=== PATIENT | male | born 1965 | race Caucasian/White ===

== ENCOUNTER → 2018-07-06 | Day surgery (SDC) | payer BC ==
[~2018-07-06] VITALS: Ht 175.3 cm; Wt 98.9 kg
[2018-07-06] VITALS (8 sets, daily range): BP systolic 150–176; BP diastolic 68–91
[~2018-07-06] MED LIST: ALPRAZOLAM 0.5 MG TAB ONE; AMBIEN10 MG PO; CYCLOBENZAPRINE10 MG PO; DIPHENHYDRAMINE HCL 25 MG CAP ONE; FENTANYL CITRATE/PF 100MCG/2 ML INJ ONE; GABAPENTIN100 MG PO; HEPARIN SOD/SOD CHLORIDE 2,000 ML ONE; IOPAMIDOL 370 MG/ML 200 ML INFUS..BTL INJ ONE; LEVOTHYROXINE75 MCG PO; LIDOCAINE HCL 1% LOCAL INJ 20 ML VIAL ONE; MIDAZOLAM HCL 2 MG/2 ML VIAL ONE; NITROGLYCERIN/D5W 200 MCG/ML 250 ML ONE; NORCO 7.5-3251 EACH PO; SODIUM CHLORIDE 0.9% 1000ML 1,000 ML ONE; TRAZODONE HCL50 MG PO; VERAPAMIL HCL 2.5 MG/ML 2 ML VIAL ONE
--- OUTSIDE RECORDS SUMMARY | 2018-07-06 13:01 | XMS REPORT | Clinical Summary ---
Author Author [facility] Address Unknown Phone Unavailable Care Team Providers Care Scale Balancer Name Role Phone Casey Lewis MD PCP Allergies No Known Allergies Current Medications Prescription Sig. Disp. Refills Start End Date Status Date levothyroxine (SYNTHROID, TK 1 T PO D 0 04/12/20 Active LEVOXYL) 75 mcg tablet 18 HYDROcodone-acetaminophen TK 1 T PO Q 8 H PRN 0 05/20/20 Active (NORCO) 7.5-325 mg per 18 tablet traZODone (DESYREL) 50 MG TK 1 T PO HS 2 06/05/20 Active tablet 18 zolpidem (AMBIEN) 10 mg TK 1 T PO QD HS PRN 0 06/02/20 Active tablet 18 cyclobenzaprine TK 1 T PO QHS 1 04/18/20 Active (FLEXERIL) 5 mg tablet 18 Active Problems Problem Noted Date Obstructive sleep apnea 06/12/2018 Encounters Date Type Specialty Care Team Description 06/12/2018 Office Visit Otolaryngology Jean Powell MD Obstructive sleep apnea (Primary Dx) after 07/05/2017 Family History Medical History Relation Name Comments Cancer Mother Relation Name Status Comments Mother Social History Tobacco Use Types Packs/Day Years Used Date Never Smoker Smokeless Tobacco: Never Used Alcohol Use Drinks/Week oz/Week Comments No Sex Assigned at Date Recorded Not on file Last Filed Vital Signs Vital Sign Reading Time Taken Blood Pressure - - Pulse - - Temperature - - Respiratory Rate - - Oxygen Saturation - - Inhaled Oxygen - - Concentration Weight 99.8 kg (220 lb) 06/12/2018 8:35 AM CDT Height 175.3 cm (5' 9") 06/12/2018 8:35 AM CDT Body Mass Index 32.49 06/12/2018 8:35 AM CDT Plan of Treatment Health Maintenance Due Date Last Done Comments COLON CANCER SCREENING 2016 SHINGRIX VACCINE (#1) 2016 INFLUENZA VACCINE 04/04/2018 Results Not on fileafter 07/05/2017 Insurance Payer Benefit Subscriber ID Type Phone Address Plan / Group BCBS BCBS xxxxxxxxxxxx PPO CHOICE PPO/TRIP GRIDER PPO
--- OUTSIDE RECORDS SUMMARY | 2018-07-06 13:01 | XMS REPORT | Continuity of Care Document ---
Author Author 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 HX of DX with rheumatoid arthrits and possible fibromyalgia [facility] Difficulty sleeping Problem 07/05/2015 [facility] Heartburn Problem 07/05/2015 [facility] History of colonic polyp Problem 07/05/2015 [facility] Hypertension Problem 07/05/2015 [facility] Medications Medication Details Route Status Patient Instructions Ordering Provider Order Date Source Misc Medication 220 mL, Soln-IV, IV, Once, first dose 07/03/15 8:07:00 CDT, stop date 07/03/15 8:07:00 CDT Inactive [facility] 07/03/2015 [facility] propofol 40 mg=4 mL, Emulsion, IV, Once, first dose 07/03/15 7:59:00 CDT, stop date 07/03/15 7:59:00 CDT Inactive [facility] 07/03/2015 [facility] propofol 40 mg=4 mL, Emulsion, IV, Once, first dose 07/03/15 7:54:00 CDT, stop date 07/03/15 7:54:00 CDT Inactive [facility] 07/03/2015 [facility] propofol 80 mg=8 mL, Emulsion, IV, Once, first dose 07/03/15 7:48:00 CDT, stop date 07/03/15 7:48:00 CDT Inactive [facility] 07/03/2015 [facility] propofol 180 mg=18 mL, Emulsion, IV, Once, first dose 07/03/15 7:44:00 CDT, stop date 07/03/15 7:44:00 CDT Inactive [facility] 07/03/2015 [facility] lidocaine 2 mL, Injection, IV, Once, first dose 07/03/15 7:44:00 CDT, stop date 07/03/15 7:44:00 CDT Inactive Brian 07/03/2015 [facility] Lidocaine 2% 0.2 mL IV Start [[facility]] 0.2 mL, Injection, Subcutaneous, Once PRN for other (see comment), first dose 07/03/15 7:21:00 CDT Inactive Chava 07/03/2015 [facility] LR 1,000 mL 1,000 mL, IV, 30 mL/hr, start date 07/03/15 7:21:00 CDT Inactive Chava 07/03/2015 [facility] amlodipine 2.5 mg oral tablet 2.5 mg=1 tabs, Oral, Daily, take AM of procedure, 0 Refill(s), HTNtake AM of procedure Active 07/02/2015 [facility] cyclobenzaprine See Instructions, unknown dose Oral PRN, 0 Refill(s), muscle relaxantunknown dose Oral PRN Active 07/02/2015 [facility] [place] 5 mg-325 mg oral tablet 1 tabs, Oral, BID, 0 Refill(s), arthritis Active 07/02/2015 [facility] Ambien 10 mg oral tablet 10 mg=1 tabs, Oral, qHS, PRN for sleep, 0 Refill(s), sleep Active 07/02/2015 [facility] Allergies, Adverse Reactions, Alerts Substance Category Reaction Severity Reaction type Status Date Reported Comments Source No Known Medication Allergies drug allergy Allergy [facility] Immunizations Immunization Date Given Site Status Last Updated Comments Source Results Order Name Results Value Reference Range Date Interpretation Comments Source Vital Signs Vital Sign Value Date Comments Source Respitory Rate 16 07/03/2015 [facility] Peripheral Pulse Rate 79 07/03/2015 [facility] Heart Rate 72 07/03/2015 [facility] Respitory Rate 20 07/03/2015 [facility] Systolic (mm Hg) <content ID='[id number]'>156</content>/<content ID='[id number]'>87</content> 07/03/2015 [facility] Systolic (mm Hg) <content ID='[id number]'>152</content>/<content ID='[id number]'>93</content> 07/03/[address] [facility] Respitory Rate 16 07/03/2015 [facility] Heart Rate 73 07/03/[address] [facility] Systolic (mm Hg) <content ID='[id number]'>144</content>/<content ID='[id number]'>86</content> 07/03/2015 [facility] Heart Rate 73 07/03/2015 [facility] Temperature Oral (F) 36.3 Anabella 07/03/2015 [facility] Height 172.72 cm 07/03/2015 [facility] Weight 33 07/03/[address] [facility] Weight 97.52 07/03/2015 [facility] Peripheral Pulse Rate 87 07/03/2015 [facility] Temperature Oral (F) 36.6 Anabella 07/03/2015 [facility] Weight 32.69 07/02/2015 [facility] Weight 97.52 07/02/[address] [facility] Height 172.72 cm 07/02/[address] [facility] Encounters Location Location Details Encounter Type Encounter Number Reason For Visit Attending Provider ADM Date DC Date Status Source [facility] Outpatient [id number] Ric Chava 07/03/2015 07/03/2015 Active [facility] Procedures Procedure Code Date Perfomer Comments Source COLONOSCOPY FLEXIBLE; DIAGNOSTIC; INCL. COLLECTION OF SPECIMENS 27571 (Other)<sup>1</sup> 07/03/2015 Chava 1auto-populated from documented surgical case [facility] ESOPHAGOGASTRODUODENOSCOPY W/BIOPSY 18324 (Other)<sup>2</sup> 07/03/2015 Chava 2auto-populated from documented surgical case [facility] Bilateral elbow surgery [facility] Colonoscopy [id number] [facility] EGD [facility] Knee surgery [facility]
--- OUTSIDE RECORDS SUMMARY | 2018-07-06 13:01 | XMS REPORT | CCD ---
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 HX of DX with rheumatoid arthrits and possible fibromyalgia Medications Medication Instructions Start Date End Date Status propofol 40 mg=4 mL, Emulsion, IV, Once, 07/03/2015 07/03/2015 Completed first dose 07/03/15 7:59:00 CDT, stop date 07/03/15 7:59:00 CDT Misc Medication 220 mL, Soln-IV, IV, Once, first 07/03/2015 07/03/2015 Completed dose 07/03/15 8:07:00 CDT, stop date 07/03/15 8:07:00 CDT propofol 40 mg=4 mL, Emulsion, IV, Once, 07/03/2015 07/03/2015 Completed first dose 07/03/15 7:54:00 CDT, stop date 07/03/15 7:54:00 CDT propofol 180 mg=18 mL, Emulsion, IV, Once, 07/03/2015 07/03/2015 Completed first dose 07/03/15 7:44:00 CDT, stop date 07/03/15 7:44:00 CDT propofol 80 mg=8 mL, Emulsion, IV, Once, 07/03/2015 07/03/2015 Completed first dose 07/03/15 7:48:00 CDT, stop date 07/03/15 7:48:00 CDT lidocaine 2 mL, Injection, IV, Once, first 07/03/2015 07/03/2015 Completed dose 07/03/15 7:44:00 CDT, stop date 07/03/15 7:44:00 CDT amlodipine 2.5 mg 2.5 mg=1 tabs, Oral, Daily, take AM 07/02/2015 07/16/2015 Ordered oral tablet of procedure, 0 Refill(s), HTN take AM of procedure cyclobenzaprine See Instructions, unknown dose Oral 07/02/2015 Ordered PRN, 0 Refill(s), muscle relaxant unknown dose Oral PRN Lidocaine 2% 0.2 mL 0.2 mL, Injection, Subcutaneous, 07/03/2015 07/03/2015 Discontinued IV Start [[place]] Once PRN for other (see comment), first dose 07/03/15 7:21:00 CDT LR 1,000 mL 1,000 mL, IV, 30 mL/hr, start date 07/03/2015 07/03/2015 Discontinued 07/03/15 7:21:00 CDT [place] 5 mg-325 mg 1 tabs, Oral, BID, 0 Refill(s), 07/02/2015 07/16/2015 Ordered oral tablet arthritis Ambien 10 mg oral 10 mg=1 tabs, Oral, qHS, PRN for 07/02/2015 07/16/2015 Ordered tablet sleep, 0 Refill(s), sleep Vital Signs Most recent to oldest [Reference Range]: 1 2 3 Temperature Oral [35.8-37.3 DegC] 36.3 DegC (07/03/2015 08:00:00) 36.6 DegC (07/03/2015 07:42:00) Temperature Farenheit 97.34 DegF (07/03/2015 08:00:00) Peripheral Pulse Rate [55-105 bpm] 79 bpm (07/03/2015 08:52:00) 87 bpm (07/03/2015 07:42:00) Heart Rate Monitored [60-100 bpm] 72 bpm (07/03/2015 08:30:00) 73 bpm (07/03/2015 08:20:00) 73 bpm (07/03/2015 08:10:00) Respiratory Rate [12-20] 16 (07/03/2015 08:52:00) 20 (07/03/2015 08:30:00) 16 (07/03/2015 08:20:00) SpO2 [90-100 %] 99 % (07/03/2015 08:52:00) 98 % (07/03/2015 08:30:00) 96 % (07/03/2015 08:20:00) Blood Pressure [110-120/65-85 mmHg] <content ID='[id number]'>156</content>/<content ID='[id number]'>87</content> mmHg *HI* (07/03/2015 08:30:00) <content ID='[id number]'>152</content>/<content ID='[id number]'>93</content> mmHg *HI* (07/03/2015 08:20:00) <content ID='[id number]'>144</content>/<content ID='[id number]'>86</content> mmHg *HI* (07/03/2015 08:10:00) Mean Arterial Pressure, Cuff 110 mmHg (07/03/2015 08:30:00) 112.7 mmHg (07/03/2015 08:20:00) 105.3 mmHg (07/03/2015 08:10:00) Most recent to oldest [Reference Range]: 1 2 3 Height 172.72 cm (07/03/2015 07:42:00) 172.72 cm (07/02/2015 14:45:00) Height/Length Dosing 172.72 cm (07/03/2015 07:42:00) 172.72 cm (07/02/2015 14:45:00) Height Inches 68 in (07/03/2015 07:42:00) 68 in (07/02/2015 14:45:00) Weight 97.52 kg (07/03/2015 07:42:00) 97.52 kg (07/02/2015 14:45:00) Weight Dosing 97.52 kg (07/03/2015 07:42:00) 97.52 kg (07/02/2015 14:45:00) Weight Pounds 215 lb (07/03/2015 07:42:00) 215 lb (07/02/2015 14:45:00) Body Mass Index 33 kg/m2 (07/03/2015 07:42:00) 32.69 kg/m2 (07/02/2015 14:45:00) Procedures Procedures Date Related Diagnosis Bilateral elbow surgery Colonoscopy COLONOSCOPY FLEXIBLE; DIAGNOSTIC; INCL. COLLECTION OF 07/03/2015 07:43:00 SPECIMENS [id number] (Other)1 EGD ESOPHAGOGASTRODUODENOSCOPY W/BIOPSY 39947 (Other)2 07/03/2015 07:43:00 Knee surgery 1auto-populated from documented surgical case 2auto-populated from documented surgical case
[2018-07-06 14:20] LABS: BASOPHILS % 0.6 % (0.0-1.0); EOSINOPHILS # (AUTO) 0.1 (0.0-0.4); EOSINOPHILS % 2.5 % (0.0-6.0); HEMATOCRIT 45.5 % (38.2-49.6); HEMOGLOBIN 16.4 g/dL (14.0-18.0); LYMPHOCYTES # (AUTO) 1.6 (1.0-3.2); LYMPHOCYTES % 32.3 % (18.0-39.1); MEAN CORPUSCULAR HEMOGLOBIN 32.2 pg (28-32); MEAN CORPUSCULAR VOLUME 89.2 fL (81-99); MONOCYTES # (AUTO) 0.4 (0.2-0.8); MONOCYTES % 9.2 % (4.4-11.3); NEUTROPHILS # (AUTO) 2.7 (2.1-6.9); NEUTROPHILS % 55.2 % (38.7-80.0); PLATELET COUNT 200 x10e3/uL (140-360)
[2018-07-06 14:52] LABS: ALBUMIN/GLOBULIN RATIO 1.3 (0.8-2.0); ANION GAP 13.2 mmol/L (8-16); CALCIUM 9.5 mg/dL (8.4-10.2); CHOL/HDL RATIO 5.5 (3.9-4.7); CREATININE, SERUM 1.3 mg/dL (0.72-1.25); POTASSIUM 4.2 mmol/L (3.5-5.1)
--- NOTE | 2018-07-07 01:25 | Operative Report ---
DATE OF PROCEDURE: July 06, 2018 INDICATIONS: Coronary artery disease and chest pain with abnormal stress test. PROCEDURES PERFORMED 1. Left heart catheterization, selective coronary angiography, left ventriculography. 2. Deployment of right wrist transradial band. COMPLICATIONS: None. RECOMMENDATIONS: Medical therapy for endothelial dysfunction including aspirin, statin, and ranolazine. Access obtained in the right radial artery using ultrasound guidance. A 5-N[place]ali sheath was placed. Diagnostic coronary angiogram revealed no angiographic coronary artery disease; however, flow in the left anterior descending artery was ANDRES-2. LV ejection fraction 60%. LV end-diastolic pressure of 10. No gradient across the aortic valve on pullback. Right wrist sheath and guide removed. TR band applied. Patient discharged home same day. Job#: [id number] DARIO
== END | disposition home or self-care (01) ==
LOC: CATH LAB 12:58
PROVIDERS: ATTEND Internal Medicine Interventional Cardiology
DX: I25.110 Atherosclerotic heart disease of native coronary artery with unstable angina pectoris (principal); R94.39 Abnormal result of other cardiovascular function study; R03.0 Elevated blood-pressure reading, without diagnosis of hypertension; G47.33 Obstructive sleep apnea (adult) (pediatric); Z68.32 Body mass index [BMI] 32.0-32.9, adult
CPT/HCPCS: 36415; 80053; 80061; 85025; 93458; C1887; J2001; J2250; J7030; Q9967